=== PATIENT | female | born 1960 | race African-American/Black ===

== ENCOUNTER → 2016-12-20 | Day surgery (SDC) | payer OTHER ==
[~2016-12-20] MED LIST: ACETAMINOPHEN PO; ATENOLOL PO; BUMETANIDE2 M1 PO; HYDRALAZINE HCL50 MG PO; IRON325 ( 652 PO; NORVASC10 MG PO; PRINIVIL40 MG PO; TOPROL XL100 MG PO; VITAMIN D1000 UNIT PO; ZOVIRAX400 MG PO
--- NOTE | ~2016-12-20 | OR ---
Unit #: [id number] #: [id number] Patient: COLBY ANG [id number] [address] [address] [id number] MR#: [id number] NAME: COLBY ANG ROOM: Date of Procedure: 12/20/2016 Admission Date: 12/20/2016 Surgeon: Almas Stevnes M.D. : 1960 Attending Physician: Almas Stevens M.D. Primary Care Physician: Lacey Lambert OPERATIVE REPORT PROCEDURE PERFORMED Colonoscopy to cecum with biopsy removal of polyps. INDICATIONS FIT positive MEDICATIONS Monitored anesthesia. POSTOPERATIVE FINDINGS 1. Two polyps rectum, each was 4 mm, each removed using biopsy forceps. 2. Internal hemorrhoids. 3. Good prep. 4. Rest of the colon examined to the cecum was normal. PLAN 1. Follow up on the pathology report. 2. Repeat colonoscopy in 5 years. DESCRIPTION OF PROCEDURE The patient was explained of the procedure, risks, and benefits along with risks and benefits of anesthesia. She was brought to the endoscopy room. Propofol anesthesia was given. Rectal exam was done, which was normal. Colonoscope was lubricated, passed up the rectum, advanced under direct vision all the way to the cecum. Cecum was identified by ileocecal valve and appendiceal orifice. I then started to pull the scope actively looking. FINDINGS As described above. Rectal polyps were removed using biopsy forceps. I retroflexed in the rectum and small hemorrhoids were noted. Gently, the scope was pulled out. She tolerated the procedure well. Dictated by... Bing Mckeon/lilliam TD: 12/20/2016 16:19 JOB #: [id number] CC: Almas Stevens M.D. Unit #: [id number] #: [id number] Patient: COLBY ANG Jack Lambert Aprn OPERATIVE REPORT Page 1 of 1 X Almas Stevens MD PROCEDURE OPERATIVE NOTE
== END | disposition home or self-care (01) ==
LOC: COPS 09-27 11:00
DX: K62.1 Rectal polyp (principal); K64.8 Other hemorrhoids; I10 Essential (primary) hypertension; Z96.652 Presence of left artificial knee joint; Z79.899 Other long term (current) drug therapy
CPT/HCPCS: 88305; J2250